=== PATIENT | female | born 2000 | race Caucasian/White ===

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

== ENCOUNTER 2023-08-03 22:05 | Emergency (ER) | payer BC, SELFPAY ==
[2023-08-03 22:10] VITALS: BP 130/85; PULSE 90; O2SAT 97
[2023-08-03 22:18] VITALS: BP 143/97; PULSE 93; RESP 18; TEMP 36.1; O2SAT 99; BMI 17.5
--- NOTE | 2023-08-04 01:42 | ED_ITS ---
HPI - Allergic Reaction General Chief complaint: Allergic Reaction Stated complaint: ? Allergic Reaction Time Seen by Provider: 08/04/23 00:04 Source: patient Mode of arrival: ambulatory Limitations: no limitations History of Present Illness HPI narrative: 22 yo female with hx of asthma, strong fam hx of allergies to cayenne she accidentally ate some cayenne tonight and felt her throat was closing and sought medical care. She herself has not had an issue. It resolved over time. She has never had this happen to food before. MD complaint: allergic reaction Onset (ago): hour(s) (8pm on 08/03) Exposure: food Known history of allergy to: red pepper flakes Symptoms: difficulty swallowing, difficulty breathing and hoarseness Severity: moderate Treatment prior to arrival: none Previous Allergic Reaction History: none Related Data Home Medications Medication Instructions Recorded Confirmed albuterol sulfate 90 mcg/actuation 2 puff inhalation Q6H PRN 05/30/21 aerosol inhaler (ProAir HFA) dextroamphetamine-amphetamine 20 20 mg PO DAILY 05/30/21 mg tablet (Adderall) duloxetine 40 mg capsule,delayed 40 mg PO DAILY 05/30/21 release hydroxyzine HCl 10 mg tablet 10 mg PO BEDTIME 05/30/21 levonorgestrel 21 mcg/24 hours (8 intrauterine 05/30/21 yrs) 52 mg intrauterine device (Mirena) Previous Rx's Medication Instructions Recorded amoxicillin 875 mg-potassium 1 tab PO BID #10 tabs 05/30/21 clavulanate 125 mg tablet (Augmentin) erythromycin 5 mg/gram (0.5 %) eye 0.5 inch ophthalmic (eye) BID #3.5 05/30/21 ointment grams fluconazole 150 mg tablet 150 mg PO Q3D 2 doses #2 tabs 05/30/21 (Diflucan) epinephrine 0.3 mg/0.3 mL 0.3 mg (0.3 mL) IM Q10M PRN 08/04/23 injection, auto-injector anaphylaxis #2 ea Allergies Allergy/AdvReac Type Severity Reaction Status Date / Time Sulfa (Sulfonamide Allergy Hives Verified 08/03/23 22:18 Antibiotics) Review of Systems Review of Systems: Constitutional : No Fever, No Chills ENT/Mouth : positive oral swelling, pos Hoarseness, pos Swallowing Difficulty Eyes: No Eye Pain, No Swelling, No Redness Cardiovascular : No Chest Pain, No SOB Respiratory : No Cough, No Sputum, No Wheezing, No Smoke Exposure, No Dyspnea Gastrointestinal : No Nausea, No Vomiting, No Diarrhea, No abdominal Pain Genitourinary : No Dysuria, No Urinary Frequency, No Hematuria Musculoskeletal : No joint pain, No Myalgias, No Joint Swelling Skin : No Skin Lesions, positive rash Neuro : No Weakness, No Numbness, No Headache Psych : No Anxiety/Panic, No Depression All other systems reviewed and are negative [facility] Past Medical History Attestation statement: The following information was validated with the patient. Source: old records reviewed Medical History ADHD Anxiety Depressed Asthma Endometriosis Surgical History Hx of appendectomy Social History Social History Patient Tobacco Use Status: Never used Tobacco Physical Exam ED Vital Signs: Vital Signs - 24 hr 08/03/23 22:18 Temperature 96.9 F Pulse Rate 93 Respiratory Rate 18 Blood Pressure 143/97 H Pulse Oximetry 99 Oxygen Delivery Method Room Air BMI result Body Mass Index 17.5 Appearance: Alert. Oriented X3. No acute distress. Eyes: Pupils equal, round and reactive to light. ENT: Pharynx normal. no swelling, normal voice Neck: Normal inspection. Neck supple. CVS: Normal heart rate and rhythm. Pulses normal. Respiratory: No respiratory distress. Breath sounds normal. Abdomen: Soft and nontender. Skin: Skin warm and dry. Normal skin color. Normal skin turgor. Extremities: No lower extremity edema. No calf ttp Neuro: Oriented X 3. No motor deficit. No sensory deficit. Medical Decision Making Medical Decision Making MDM Narrative: 22 yo female with PMH of asthma here with c/o throat sensations and swelling feels she had allergy to red pepper flakes - at this time she has no symptoms will send home with epi pen for precautions and instructed her to find an allerg ist. Differential Diagnosis Differential Diagnoses: The differential diagnosis associated with the presentation includes allergy, anxiety, food reaction to pepper flakes - heat reaction External Record Review External record reviewed: Inpatient record Prescription Management I considered prescription management with: Other (epi pen) Discharge Plan Discharge Clinical Impression: Allergic reaction Qualifiers: Encounter type: initial encounter Qualified Code(s): T78.40XA - Allergy, unspecified, initial encounter Patient Disposition: Home, Self-Care Instructions: General Allergic Reaction (ED) Additional Instructions: avoid triggers. return for worsening swelling or concerns. you can take claritin as needed over the counter as needed for allergy symptoms carry epi pen with you when you eat at restaurants. Prescriptions: New epinephrine 0.3 mg/0.3 mL auto-injector 0.3 mg IM Q10M PRN (Reason: anaphylaxis) Qty: 2 0RF Rx Instructions: for 2 doses No Action duloxetine 40 mg capsule,delayed release(DR/EC) 40 mg PO DAILY hydroxyzine HCl 10 mg tablet 10 mg PO BEDTIME dextroamphetamine-amphetamine [Adderall] 20 mg tablet 20 mg PO DAILY Mirena 20 mcg/24 hours (7 yrs) 52 mg intrauterine device intrauterine albuterol sulfate [ProAir HFA] 90 mcg/actuation HFA aerosol inhaler 2 puff inhalation Q6H PRN amoxicillin-pot clavulanate [Augmentin] 875-125 mg tablet 1 tab PO BID Qty: 10 0RF fluconazole [Diflucan] 150 mg tablet 150 mg PO Q3D Qty: 2 0RF Rx Instructions: may repeat second dose 72 hrs after first dose if symptoms persist erythromycin 5 mg/gram (0.5 %) ointment 0.5 inch ophthalmic (eye) BID Qty: 3.5 1RF Stand Alone Forms: Work/School Release
[2023-08-04 01:45] VITALS: BP 112/77; PULSE 81; RESP 16; TEMP 36.6; O2SAT 99
== END 2023-08-04 01:54 | disposition home or self-care (01) ==
LOC: HO.ED 08-04 01:51
PROVIDERS: Emergency Provider Emergency Medicine
DX: R13.10 Dysphagia, unspecified (principal); T78.1XXA Other adverse food reactions, not elsewhere classified, initial encounter; X58.XXXA Exposure to other specified factors, initial encounter
CPT/HCPCS: 99283